=== PATIENT | male | born 1940 | race Caucasian/White ===

== ENCOUNTER 2024-03-16 13:37 | Outpatient (AMB) | payer MEDICARE, SELFPAY ==
[2024-03-16 13:42] VITALS: BP 124/66; PULSE 73; O2SAT 96; BMI 25.9
--- NOTE | 2024-03-16 13:42 | MHC.PC.OV ---
Vital Signs 03/16/24 13:42 Height 6 ft 1 in Weight 196 lb BMI 25.9 BP 124/66 Blood Pressure Location Rt brachial Position Sitting Pulse 73 Pulse Source Pulse Oximeter Pulse Oximetry (%) 96 Oxygen Delivery Method Room Air Intake Visit Reasons: Pre op visit. Intake Note: Pt is here today for a pre op visit. Pt is having surgery with Dr. Jaimes. Allergies No Known Allergies Allergy (Verified 03/16/24 13:54) Medication List - Last Reconciled 03/16/24 by Meghan Leyva MD [id number]-[id number]-tenof alafen [phone] mg (Genvoya) tabs PO Tobacco use date assessed: 03/16/24 Fall risk assessment: No Falls in past year Last assessed Fall Risk: 03/16/24 Dental Screening Dental Screen Date: 03/16/24 Did you have a dental visit in the last 12 months?: Yes Did you have a dental problem in the last 6 months where you did not have access to dental care?: No Was dental information given to patient?: Patient has dentist HPI Pre op visit. HPI Details Pt presents for preop for bilateral blepharoplasty. 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 He has been physically active exercising 3 times a week at the gym denies chest pain shortness of breath palpitations. [facility] Surgical History Hx of appendectomy History of hernia surgery Family History Father No problems noted. Mother No problems noted. Social History Household Members Other:: single,retired, lives in [place] in the winter 1 daughter, 5 grandchildren [facility] Patient Tobacco Use Status: Never used Tobacco e-Cigarette/Vaping Use: Never Used service: No Current occupational status: retired Cognitive needs: No Hearing needs: No Vision needs: No Questionnaire PHQ-9 Over the last 2 weeks, how often have you been bothered by any of the following problems? 1. Little interest or pleasure in doing things: not at all 2. Feeling down, depressed, or hopeless: not at all 3. Trouble falling or staying asleep, or sleeping too much: not at all 4. Feeling tired or having little energy: not at all 5. Poor appetite or overeating: not at all 6. Feeling bad about yourself - or that you are a failure or have let yourself or your family down: not at all 7. Trouble concentrating on things, such as reading the newspaper or watching television: not at all 8. Moving or speaking so slowly that other people could have noticed. Or the opposite - being so fidgety or restless that you have been moving around a lot more than usual: not at all 9. Thoughts that you would be better off or of hurting yourself in some way: not at all Total score: 0 Depression Screening Interpretation: Negative Depression Screening Done: Yes Source: Developed by Drs. Umberto Burgos, Carmen Ruiz, Tushar Hwang and colleagues, with an educational sohail from [employer]. Thrive Questionnaire Date Thrive assessed: 03/16/24 I am a: Patient What is your living situation today?: I have a steady place to live Within the past 12 months, did the food you bought not last and you didn't have the money to get more?: Never true Within the past 12 months, did you worry whether your food would run out before you got money to buy more?: Never true Do you have trouble paying for medicines?: No Do you have trouble getting transportation to medical appointments?: No Do you have trouble paying your heating and electricity bill?: No Do you have trouble taking care of your child, family member or friend?: No Do you have trouble with day-to-day activities such as bathing, preparing meals, shopping, managing finances, etc.?: No Are you currently unemployed and looking for a job?: No Are you interested in more education?: No Please select the resources that you would like help with: None THRIVE Score: 0 AUDIT C Alcohol Use Questionnaire (AUDIT-C) 1. How often do you have a drink containing alcohol?: Never 3. How often do you have six or more drinks on one occasion?: Never Total Score: 0 ENOC-7 AMB Questionnaire ENOC-7 Date ENOC - 7 assessed: 03/16/24 Feeling nervous, anxious, or on edge: 0 = Not at all Not being able to stop or control worryin = Not at all Worrying too much about different things: 0 = Not at all Trouble relaxin = Not at all Being so restless that it is hard to sit still: 0 = Not at all Becoming easily annoyed or irritable: 0 = Not at all Feeling afraid as if something awful might happen: 0 = Not at all Total ENOC-7 score (0-4 normal; 5-9 mild; 10-14 moderate; 15-21 severe): 0 Source: Developed by Drs. Umberto Burgos, Carmen Ruiz, Tushar Hwang and colleagues, with an educational sohail from [employer]. Review of Systems Const All systems reviewed & are unremarkable except as noted in HPI and below Reports no additional complaints Eyes Reports no additional complaints ENT Reports no additional complaints Card Reports no additional complaints Resp Reports no additional complaints GI Reports no additional complaints Reports no additional complaints Physical exam (Primary Care) Vital Signs: Last Vital Signs Pulse 73 03/16/24 13:42 BP 124/66 03/16/24 13:42 Pulse Ox 96 03/16/24 13:42 Oxygen Delivery Method Room Air 03/16/24 13:42 BMI result Body Mass Index 25.9 Tobacco/Smoking Status: Tobacco use Status Tobacco use date assessed 03/16/24 03/16/24 13:56 Patient Tobacco Use Status Never used Tobacco 03/16/24 13:56 e-Cigarette/Vaping Use Never Used 03/16/24 13:42 PHQ-9: PHQ-9 Score PHQ-9: Total score 0 03/16/24 13:56 Depression Screening Interpretation: Negative Thrive Assessment: Date of Thrive Assessment Date Thrive assessed 03/16/24 03/16/24 13:56 Const General: no acute distress HENMT Head: Yes normal to inspection Ears: hearing grossly normal bilaterally General nose exam: Normal external nose present Face and sinus: Yes normal facial exam Throat: Yes posterior oropharynx normal Eyes General: appearance normal, both eyes and all related structures Neck Neck: Yes supple Resp Effort & Inspection: normal respiratory effort Auscultation: clear to auscultation bilaterally Cardio Rhythm: regular rhythm Heart sounds: S1 normal heart sound present and S2 normal heart sound present GI Inspection: Yes normal to inspection Palpation (GI): Soft to palpation Percussion: Yes normal to percussion Auscultation: normal bowel sounds Assessment and Plan Assessment & Plan (1) HIV disease: Comment: f/u [facility] ID 2 x years, x 20 years, Code(s): B20 - Human immunodeficiency virus [HIV] disease Plan: Follow-up with infectious disease (2) Annual physical exam: Code(s): Z00.00 - Encounter for general adult medical examination without abnormal findings (3) Ptosis of both upper eyelids: Code(s): H02.403 - Unspecified ptosis of bilateral eyelids Plan: Patient will have a fasting blood work at [facility], he is medically cleared for blepharoplasty surgery Orders: Orders Comprehensive [place]. Panel Fast Today B20 - Human immunodeficiency virus [HIV] disease, Z00.00 - Encounter for general adult medical examination without abnormal findings Complete Blood Count Auto Diff Today B20 - Human immunodeficiency virus [HIV] disease, Z00.00 - Encounter for general adult medical examination without abnormal findings UA w Microscopic Today B20 - Human immunodeficiency virus [HIV] disease, Z00.00 - Encounter for general adult medical examination without abnormal findings Lipid Panel Today B20 - Human immunodeficiency virus [HIV] disease, Z00.00 - Encounter for general adult medical examination without abnormal findings Coding Level of Care Code Est Pt Level 3 (04657) Diagnoses HIV disease B20 Annual physical exam Z00.00 Ptosis of both upper eyelids H02.403
== END 2024-03-16 15:30 | disposition home or self-care (01) ==
PROVIDERS: PCP Internal Medicine; Visit Provider Internal Medicine
DX: B20 Human immunodeficiency virus [HIV] disease (principal); Z00.00 Encounter for general adult medical examination without abnormal findings; H02.403 Unspecified ptosis of bilateral eyelids
CPT/HCPCS: 99213

== ENCOUNTER 2024-07-03 11:38 | Outpatient (AMB) | payer MEDICARE, SELFPAY ==
[2024-07-03 12:20] VITALS: BP 124/70; PULSE 76; O2SAT 96; BMI 25.4
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
== END 2024-07-03 12:44 | disposition home or self-care (01) ==
PROVIDERS: PCP Internal Medicine; Visit Provider Internal Medicine
DX: H91.90 Unspecified hearing loss, unspecified ear (principal); Z21 Asymptomatic human immunodeficiency virus [HIV] infection status

== ENCOUNTER → 2024-07-03 11:38 | Outpatient (BNVA) | payer MEDICARE, SELFPAY | PROVIDERS: PCP Internal Medicine; Visit Provider Internal Medicine | DX: B20 Human immunodeficiency virus [HIV] disease (principal); H91.90 Unspecified hearing loss, unspecified ear | CPT/HCPCS: 96127; 99212 ==

== ENCOUNTER 2025-04-27 13:09 | Outpatient (AMB) | payer MEDICARE, SELFPAY ==
[2025-04-27 13:11] VITALS: BP 130/80; PULSE 72; RESP 18; TEMP 36.7; O2SAT 96; BMI 25.3
--- NOTE | 2025-04-27 13:11 | MHC.PC.OV ---
Vital Signs 04/27/25 13:11 Height 6 ft 1 in Weight 192 lb BMI 25.3 BP 130/80 Blood Pressure Location Lt brachial Position Sitting Respiration 18 Pulse 72 Pulse Source Pulse Oximeter Temp 98.1 F Temp Source Oral Pulse Oximetry (%) 96 Oxygen Delivery Method Room Air Intake Visit Reasons: Follow up complex Intake Note: Pt is here today for a follow up complex. Allergies No Known Allergies Allergy (Verified 04/27/25 13:12) Medication List - Last Reconciled 04/27/25 by Meghan Leyva MD dzrkawk-hgf-sdaxp-tenof alafen [phone] mg (Genvoya) tabs PO Tobacco use date assessed: 04/27/25 Fall risk assessment: No Falls in past year Last assessed Fall Risk: 04/27/25 Dental Screening Dental Screen Date: 04/27/25 Did you have a dental visit in the last 12 months?: Yes Did you have a dental problem in the last 6 months where you did not have access to dental care?: No Was dental information given to patient?: Patient has dentist HPI Follow up complex HPI Details Patient presents for the follow-up. For HIV disease he follows up with Infectious Disease and has undetected HIV viral load on Genvoya. Patient complains of bilateral feet feeling cold and painful and and pain in the calf area after walking half a block. [facility] Medical History (Updated 04/27/25 @ 14:05 by Meghan Leyva MD) HIV disease Hearing loss Claudication Surgical History Hx of appendectomy History of hernia surgery Family History Father No problems noted. Mother No problems noted. Social History Household Members Other:: single,retired, lives in [place] in the winter 1 daughter, 5 grandchildren [facility]: [facility] Patient Tobacco Use Status: Never used Tobacco e-Cigarette/Vaping Use: Never Used service: No Current occupational status: retired Current occupational exposures/hazards: No Cognitive needs: No Hearing needs: No Vision needs: No Questionnaire PHQ-9 Over the last 2 weeks, how often have you been bothered by any of the following problems? 1. Little interest or pleasure in doing things: not at all 2. Feeling down, depressed, or hopeless: not at all 3. Trouble falling or staying asleep, or sleeping too much: not at all 4. Feeling tired or having little energy: not at all 5. Poor appetite or overeating: not at all 6. Feeling bad about yourself - or that you are a failure or have let yourself or your family down: not at all 7. Trouble concentrating on things, such as reading the newspaper or watching television: not at all 8. Moving or speaking so slowly that other people could have noticed. Or the opposite - being so fidgety or restless that you have been moving around a lot more than usual: not at all 9. Thoughts that you would be better off or of hurting yourself in some way: not at all Total score: 0 Depression Screening Interpretation: Negative Depression Screening Done: Yes 34912 - PHQ-9 Billing: Yes Source: Developed by Drs. Umberto Burgos, Carmen Ruiz, Tushar Hawng and colleagues, with an educational sohail from [employer] Thrive Questionnaire Date Thrive assessed: 04/27/25 I am a: Patient What is your living situation today?: I have a steady place to live Within the past 12 months, did the food you bought not last and you didn't have the money to get more?: Never true Within the past 12 months, did you worry whether your food would run out before you got money to buy more?: Never true Do you have trouble paying for medicines?: No Do you have trouble getting transportation to medical appointments?: No Do you have trouble paying your heating and electricity bill?: No Do you have trouble taking care of your child, family member or friend?: No Do you have trouble with day-to-day activities such as bathing, preparing meals, shopping, managing finances, etc.?: No Are you currently unemployed and looking for a job?: Yes Are you interested in more education?: No Please select the resources that you would like help with: None Currently or been in a relationship where the following occur: No concerns reported THRIVE Score: 0 AUDIT C Alcohol Use Questionnaire (AUDIT-C) 1. How often do you have a drink containing alcohol?: 2-4 times a month 2. How many drinks containing alcohol do you have on a typical day when you are drinking?: 1 or 2 3. How often do you have six or more drinks on one occasion?: Never Total Score: 2 ENOC-7 AMB Questionnaire ENOC-7 Date ENOC - 7 assessed: 04/27/25 Feeling nervous, anxious, or on edge: 0 = Not at all Not being able to stop or control worryin = Not at all Worrying too much about different things: 0 = Not at all Trouble relaxin = Not at all Being so restless that it is hard to sit still: 0 = Not at all Becoming easily annoyed or irritable: 0 = Not at all Feeling afraid as if something awful might happen: 0 = Not at all Total ENOC-7 score (0-4 normal; 5-9 mild; 10-14 moderate; 15-21 severe): 0 Source: Developed by Drs. Umberto Burgos, Carmen Ruiz, Tushar Hwang and colleagues, with an educational sohail from [employer] ENOC-7 Assessment Billing ENOC-7 Assessment Tool: ENOC-7 Assessment 16723 Review of Systems Const All systems reviewed & are unremarkable except as noted in HPI and below Eyes Reports no additional complaints ENT Reports no additional complaints Card Reports no additional complaints Resp Reports no additional complaints GI Reports no additional complaints Reports no additional complaints Physical exam (Primary Care) Vital Signs: Last Vital Signs Temp 98.1 F 04/27/25 13:11 Pulse 72 04/27/25 13:11 Resp 18 04/27/25 13:11 BP 130/80 04/27/25 13:11 Pulse Ox 96 04/27/25 13:11 Oxygen Delivery Method Room Air 04/27/25 13:11 BMI result Body Mass Index 25.3 Tobacco/Smoking Status: Tobacco use Status Tobacco use date assessed 04/27/25 04/27/25 13:17 Patient Tobacco Use Status Never used Tobacco 04/27/25 13:17 e-Cigarette/Vaping Use Never Used 04/27/25 13:11 PHQ-9: PHQ-9 Score PHQ-9: Total score 0 04/27/25 13:39 Depression Screening Interpretation: Negative Thrive Assessment: Date of Thrive Assessment Date Thrive assessed 04/27/25 04/27/25 13:17 Currently or been in a relationship where the following occur: No concerns reported Const General: no acute distress HENMT Head: Yes normal to inspection Ears: TM's normal bilaterally Mouth: Normal oral and palatal mucosa present Throat: Yes posterior oropharynx normal Neck Neck: Yes no lymphadenopathy and Yes supple Resp Effort & Inspection: normal respiratory effort Auscultation: clear to auscultation bilaterally Cardio Rhythm: regular rhythm Heart sounds: S1 normal heart sound present and S2 normal heart sound present GI Inspection: Yes normal to inspection Palpation (GI): Soft to palpation Percussion: Yes normal to percussion Auscultation: normal bowel sounds Extrem Other: Delayed capillary refill on toes bilaterally, decreased dorsalis pedis pulses bilaterally General: Yes no clubbing, cyanosis or edema Coding Level of Care Code Est Pt Level 4 (18797) Diagnoses Claudication I73.9 HIV disease B20 Hearing loss H91.90 Additional Codes ENOC-7 Assessment Billing - ENOC-7 Assessment Tool: ENOC-7 Assessment 08098 ([id number]) PHQ-9 - 25698 - PHQ-9 Billing: Yes ([id number]) Assessment & Plan Assessment & Plan (1) Claudication: Code(s): I73.9 - Peripheral vascular disease, unspecified Category: Medical Plan: Obtain an arterial Doppler to evaluate for peripheral vascular disease (2) HIV disease: Comment: f/u [facility] ID 2 x years, x 20 years, Code(s): B20 - Human immunodeficiency virus [HIV] disease Category: Medical Plan: Follow-up with the Infectious Disease (3) Hearing loss: Comment: L>R, evaluated by ENT 2023 Code(s): H91.90 - Unspecified hearing loss, unspecified ear Category: Medical Plan: Follow-up with the ENT Orders: Orders Lipid Panel Today Z00.00 - Encounter for general adult medical examination without abnormal findings Comprehensive [place]. Panel Fast Today Z00.00 - Encounter for general adult medical examination without abnormal findings US arterial duplex LE BI Today I73.9 - Peripheral vascular disease, unspecified
== END 2025-04-27 14:05 | disposition home or self-care (01) ==
PROVIDERS: PCP Internal Medicine; Visit Provider Internal Medicine
DX: I73.9 Peripheral vascular disease, unspecified (principal); B20 Human immunodeficiency virus [HIV] disease; H91.90 Unspecified hearing loss, unspecified ear

== ENCOUNTER → 2025-04-27 13:09 | Outpatient (BNVA) | payer MEDICARE, SELFPAY | PROVIDERS: PCP Internal Medicine; Visit Provider Internal Medicine | DX: I73.9 Peripheral vascular disease, unspecified (principal); B20 Human immunodeficiency virus [HIV] disease; H91.90 Unspecified hearing loss, unspecified ear | CPT/HCPCS: 96127; 99212 ==

== ENCOUNTER 2025-05-03 10:44 | Outpatient (REF) | payer MEDICARE, SELFPAY ==
[2025-05-03 13:30] LABS: Alanine Aminotransferase 12 U/L (0-40); Albumin Level 4.2 g/dL (3.5-5.0); Alkaline Phosphatase 87 U/L (39-117); Anion Gap 11 (12-20); Aspartate Amino Transferase 24 U/L (5-37); Blood Urea Nitrogen 19 mg/dL (9-16); Calcium 9.1 mg/dL (8.4-10.2); Carbon Dioxide 27 mmol/L (22-29); Chloride 107 mmol/L (96-108); Cholesterol 189 mg/dL (<200); Estimated Glomerular Filt Rate > 60; HDL Cholesterol 51 mg/dL (>40); Potassium 4.1 mmol/L (3.3-5.1); Sodium 141 mmol/L (135-145); Total Protein 7.1 g/dL (6.5-8.0); Triglycerides 111 mg/dL (<150)
== END 2025-05-03 10:45 | disposition home or self-care (01) ==
LOC: HO.HMGCLDS 10:44
PROVIDERS: PCP Internal Medicine; Visit Provider Internal Medicine
DX: Z00.00 Encounter for general adult medical examination without abnormal findings (principal)
CPT/HCPCS: 36415; 80053; 80061

== ENCOUNTER 2025-06-14 12:03 | Outpatient (REF) | payer MEDICARE, SELFPAY ==
--- NOTE | ~2025-06-14 | US_ITS ---
EXAMINATION: Noninvasive assessment of the bilateral lower extremities without ARTERIAL DUPLEX, ANKLE BRACHIAL INDICES (ABIs), and PULSE VOLUME RECORDINGS (PVRs). CLINICAL INFORMATION: Claudication. TECHNIQUE: Duplex Doppler techniques with waveform analysis and measurement of velocities in the bilateral common femoral, profunda femoris, superficial femoral, popliteal and tibial arteries were performed. The study was performed only at rest. COMPARISON: None FINDINGS: DIRECT DUPLEX DOPPLER FINDINGS: RIGHT LEG: Common femoral artery: 78 cm/s, phasicity: Biphasic. Profunda femoris artery: 78 cm/s, phasicity: Biphasic Superficial femoral artery (proximal): 85 cm/s, phasicity: Biphasic. Superficial femoral artery (mid): 74 cm/s, phasicity: Biphasic. Superficial femoral artery (distal): 63 cm/s, phasicity: Biphasic. Popliteal artery: 48 cm/s, phasicity: Biphasic. Posterior tibial artery: 73 cm/s, phasicity: Biphasic. Peroneal artery: 63 cm/s, phasicity: Biphasic. Anterior tibial artery: 35 cm/s, phasicity: Biphasic. Dorsalis pedis artery: 41 cm/s, phasicity:Biphasic. LEFT LEG: Common femoral artery: 78 cm/s, phasicity: Biphasic. Profunda femoris artery: 39 cm/s, phasicity: Biphasic. Superficial femoral artery (proximal): 77 cm/s, phasicity: Biphasic. Superficial femoral artery (mid): 70 cm/s, phasicity: Biphasic. Superficial femoral artery (distal): 49 cm/s, phasicity: Biphasic. Popliteal artery: 59 cm/s, phasicity: Biphasic. Posterior tibial artery: 111 cm/s, phasicity: Biphasic. Peroneal artery: 63 cm/s, phasicity: Biphasic. Anterior tibial artery: 15 cm/s, phasicity: Biphasic and reversal. Dorsalis pedis artery: 51 cm/s, phasicity: Biphasic. US/US arterial duplex LE BI IMPRESSION: Right leg: Mild to moderate inflow disease. Left leg: Mild to moderate inflow disease pronounced on the left anterior tibialis artery. NEDRA Reference: - >1.4 = calcified vessels - 0.9 - 1.4 = normal - no significant arterial disease - 0.7 - 0.89 = mild peripheral arterial disease - 0.51 - 0.69 = moderate peripheral arterial disease - 0.50 = severe peripheral arterial disease - < .30 = critical arterial disease Electronically signed by: Dom Hare MD 06/14/2025 01:31 PM EDT RP
== END 2025-06-14 12:04 | disposition home or self-care (01) ==
LOC: HO.US 12:03
PROVIDERS: PCP Internal Medicine; Visit Provider Internal Medicine
DX: I73.9 Peripheral vascular disease, unspecified (principal)
CPT/HCPCS: 93925

== ENCOUNTER → 2025-06-14 12:08 | Outpatient (BNV) | payer MEDICARE, SELFPAY | PROVIDERS: PCP Internal Medicine; Visit Provider Radiology Diagnostic Radiology | DX: I73.9 Peripheral vascular disease, unspecified (principal) | CPT/HCPCS: 93925 ==

== ENCOUNTER 2025-08-27 11:52 | Outpatient (AMB) | payer MEDICARE, SELFPAY ==
--- NOTE | 2025-08-27 11:59 | AM.OFFWIN_ITS ---
Intake Vital Signs 08/27/25 12:01 Height 6 ft 1 in Weight 193 lb BMI 25.5 BP 140/80 H Blood Pressure Location Lt brachial Position Sitting Pulse 67 Pulse Source Pulse Oximeter Temp 98.1 F Temp Source Oral Pulse Oximetry (%) 97 Oxygen Delivery Method Room Air Intake Visit Reasons: EP Blood in semen Intake Note: Patient presents with c/o blood in semen on Wednesday. Patient Tobacco Use Status: Never used Tobacco Allergies No Known Allergies Allergy (Verified 08/27/25 12:02) Do you need a note to return to daycare/school/sports/work: No HPI HPI Comments History of Present Illness Details 84 y/o male patient presents to the walk -in clinic with complaint of blood in semen (hematospermia). Patient reports one episode noted after unprotected intercourse with a new female partner on Wednesday. He has not had further sexual activity since. Denies urinary frequency, urgency, dysuria, hematuria, flank pain, fevers, chills, nausea, or vomiting. No previous similar episodes reported. [facility] Medical History (Updated 08/27/25 @ 12:42 by Tammi Romero NP) Blood in semen HIV disease Hearing loss Claudication Surgical History Hx of appendectomy History of hernia surgery Family History Father No problems noted. Mother No problems noted. Social History Household Members Other:: single,retired, lives in [place] in the winter 1 daughter, 5 grandchildren Housing: Condominium Patient Tobacco Use Status: Never used Tobacco e-Cigarette/Vaping Use: Never Used service: No Current occupational status: retired Current occupational exposures/hazards: No Cognitive needs: No Hearing needs: No Vision needs: No Review of Systems Const All systems reviewed & are unremarkable except as noted in HPI and below Physical Exam Vital Signs: Last Vital Signs Temp 98.1 F 08/27/25 12:01 Pulse 67 08/27/25 12:01 BP 140/80 H 08/27/25 12:01 Pulse Ox 97 08/27/25 12:01 Oxygen Delivery Method Room Air 08/27/25 12:01 BMI result Body Mass Index 25.5 Const General: no acute distress Nutritional Appearance: well nourished Orientation/consciousness: patient oriented x3 Resp Effort & Inspection: normal respiratory effort Cardio Rate: regular rate General: Yes deferred Neuro General: patient oriented x3, gait normal and moves all extremities Psych Speech and movement: Normal speech and movement present Results AMB Urinalysis, Automated UA Leukoctes 15 Anika/uL Last Edit by Loida Sanderson CMA on 08/27/25 12:44 UA Nitrite Negative Last Edit by Loida Sanderson CMA on 08/27/25 12:44 UA Urobilinogen 0.2 mg/dL Last Edit by Loida Sanderson CMA on 08/27/25 12:4 4 UA Protein 15 mg/dL Last Edit by Loida Sanderson CMA on 08/27/25 12:44 UA pH 6.0 Last Edit by Loida Sanderson CMA on 08/27/25 12:44 UA Blood 0 Bakari/uL Last Edit by Loida Sanderson CMA on 08/27/25 12:44 UA Specific [place] 1.025 Last Edit by Loida Sanderson CMA on 08/27/25 12: 44 UA Ketone Negative Last Edit by Loida Sanderson CMA on 08/27/25 12:44 UA Bilirubin 0 mg/dL Last Edit by Loida Sanderson CMA on 08/27/25 12:44 UA Glucose 0 mg/dL Last Edit by Loida Sanderson CMA on 08/27/25 12:44 Results Reviewed Results Reviewed: Laboratory Last Values Urine pH (Auto) 6.0 08/27/25 12:41 Specific [place] (Auto) 1.025 08/27/25 12:41 Urine Protein (Auto) 15 mg/dL H 08/27/25 12:41 Glucose (UA)(Auto) 0 mg/dL 08/27/25 12:41 Urine Ketones (Auto) Negative 08/27/25 12:41 Urine Blood (Auto) 0 Bakari/uL 08/27/25 12:41 Urine Nitrite (Auto) Negative 08/27/25 12:41 Urine Bilirubin (Auto) 0 mg/dL 08/27/25 12:41 Urine Urobilinogen (Auto) 0.2 mg/dL 08/27/25 12:41 Leukocyte Esterase (Auto) 15 Anika/uL H 08/27/25 12:41 Assessment & Plan Assessment & Plan (1) Blood in semen: Code(s): R36.1 - Hematospermia Plan: Order UA with reflex to culture. Declined STI testing. Advise patient to abstain from sexual activity until results are available. Encourage increased hydration. Provided education on safe sex practices and condom use. Consider referral to Urology if recurrent or persistent hematospermia. Orders: Orders AMB Urinalysis Automated Today Z13.9 - Encounter for screening, unspecified UA CC w/rflx Micro + Cult Today R36.1 - Hematospermia Coding Level of Care Code Est Pt Level 4 (65528) Diagnoses Blood in semen R36.1 Time Spent (min) 20
[2025-08-27 12:01] VITALS: BP 140/80; PULSE 67; TEMP 36.7; O2SAT 97; BMI 25.5
== END 2025-08-27 12:59 | disposition home or self-care (01) ==
PROVIDERS: PCP Internal Medicine; Visit Provider Nurse Practitioner Family
DX: Z13.9 Encounter for screening, unspecified (principal); R36.1 Hematospermia

== ENCOUNTER 2025-08-27 11:52 | Outpatient (REF) | payer MEDICARE, SELFPAY | END 2025-08-27 11:53 | disposition home or self-care (01) | LOC: HO.LAB 11:52 | PROVIDERS: PCP Internal Medicine; Visit Provider Nurse Practitioner Family | DX: R36.1 Hematospermia (principal); N30.90 Cystitis, unspecified without hematuria; Z13.89 Encounter for screening for other disorder | CPT/HCPCS: 81003; 87086; 99212 ==